=== PATIENT | male | born 1955 | race Two or more races ===

== ENCOUNTER 2020-10-20 12:41 | Inpatient (IN) | payer OTHER ==
[~2020-10-20] VITALS: Ht 177.8 cm; Wt 90.7 kg
[2020-10-20] MEDS ORDERED: COZAAR25 MG (12:56)
[2020-10-20] MEDS ORDERED: METFORMIN HCL500 M3 (12:57)
[2020-10-20] MEDS ORDERED: TIZANIDINE HCL4 M1 (13:02)
[2020-10-20] MEDS ORDERED: ATORVASTATIN CA10 MG (13:02)
[2020-10-21] MEDS ORDERED: CIPROFLOXACIN500 MG (11:06)
[2020-10-21] MEDS ORDERED: FAMOTIDINE20 MG (11:06)
[2020-10-21] MEDS ORDERED: METRONIDAZOLE500 MG (11:07)
[2020-10-26] MEDS ORDERED: PROTONIX40 MG PO (14:16)
[2020-10-26] MEDS ORDERED: INTESTINEX680 M1 PO (14:16)
== END 2020-10-26 18:20 | disposition home or self-care (01) | DRG 440 ==
LOC: ER 12:41 → ICU-2 22:58 → SEC-K 10-24 10:16 → MEDI 10-24 11:15
PROVIDERS: ADMIT Internal Medicine; ATTEND Internal Medicine
PROC: 4A033R1 Measurement of Arterial Saturation, Peripheral, Percutaneous Approach (ICD-10-PCS; principal; 2020-10-20)
PROC: BW40ZZZ Ultrasonography of Abdomen (ICD-10-PCS; 2020-10-21)
PROC: BF37ZZZ Magnetic Resonance Imaging (MRI) of Pancreas (ICD-10-PCS; 2020-10-22)
DX: K85.80 Other acute pancreatitis without necrosis or infection (principal); E11.9 Type 2 diabetes mellitus without complications; I10 Essential (primary) hypertension; E11.65 Type 2 diabetes mellitus with hyperglycemia; Z79.4 Long term (current) use of insulin; E86.0 Dehydration; Z20.822 Contact with and (suspected) exposure to COVID-19

== ENCOUNTER 2025-04-18 16:53 | Emergency (ER) | payer OTHER ==
[~2025-04-18] VITALS: Ht 165.1 cm; Wt 72.6 kg
[~2025-04-18 16:53] MED LIST: ATORVASTATIN CA10 MG; CIPROFLOXACIN500 MG; COZAAR25 MG; FAMOTIDINE20 MG; INTESTINEX680 M1 PO; METFORMIN HCL500 M3; METRONIDAZOLE500 MG; PROTONIX40 MG PO; TIZANIDINE HCL4 M1
[2025-04-18] MEDS ORDERED: FAMOTIDINE/PF 20 MG in 0.9 % SODIUM CHLORIDE 8 ML IV PUSH STA (17:31)
[2025-04-18] MEDS ORDERED: 0.9 % SODIUM CHLORIDE 1,000 ML IV SCH (17:45)
[2025-04-18] MEDS ORDERED: ONDANSETRON HCL 2 MG/ML VIAL IV ONE (17:45)
[2025-04-18 18:01] LABS: BASO % 0.5 % (0.1-1.2); EOS # 0.11 (0.04-0.54); EOS % 1.2 % (0.7-7.0); LYMPH # 1.20 (1.18-3.74); LYMPH % 12.6 % (19.3-53.1); MEAN PLATELET VOLUME 10.60 fl (9.4-12.4); MONO # 0.69 (0.24-0.82); MONO % 7.2 % (4.7-12.5); NEUT # 7.44 (1.56-6.13); NEUT % 78.1 % (34.0-71.1); RED CELL DISTRIBUTION WIDTH 13.8 % (11.6-14.4)
[2025-04-18 18:29] LABS: ALT/SGPT 35 U/L (12-78); AST/SGOT 29 U/L (15-37); BILIRUBIN TOTAL 0.33 mg/dL (0.3-1.2); BILIRUBIN,CONJUGATED < 0.10 mg/dL (0.0-0.2); BUN CREA RATIO 16 (7.0-25.0); CREATININE SERUM 1.22 mg/dL (0.70-1.30); GFR 58.72; GLOBULINA 3.4 G/DL (2.4-3.5); GLUCOSE FASTING 111 mg/dL (65-100); OSMOLALITY SERUM 286 MOSM/KG (275-295)
[2025-04-18 18:32] LABS: ALT/SGPT 42 U/L (12-78); AST/SGOT 30 U/L (15-37); LDH 169 U/L (87-241); PHOSPHOKINASE CREATININE 388 U/L (39-308)
== END 2025-04-18 19:09 | disposition home or self-care (01) ==
LOC: ER 16:53
PROVIDERS: General Practice
DX: R10.9 Unspecified abdominal pain (principal); I10 Essential (primary) hypertension; E11.9 Type 2 diabetes mellitus without complications; Z79.84 Long term (current) use of oral hypoglycemic drugs; Z88.6 Allergy status to analgesic agent
CPT/HCPCS: 36415; 93005; 96365; 96366; 99282; J2405; J3490; J7030

== ENCOUNTER 2025-05-27 17:48 | Inpatient (IN) | payer OTHER ==
[~2025-05-27] VITALS: Ht 177.8 cm; Wt 88.5 kg
--- NOTE | 2025-05-27 18:16 | NUR ---
PACIENTE ALERTA Y ORIENTADO X 3. REFIERE DESDE EL MEDIO MESFIN DOLOR DE PECHO, ABDOMINAL, ESPALDA BAJA Y COSTADOS. REFIERE VOMITOS X 3.
[2025-05-27] MEDS ORDERED: ROSUVASTATIN CA20 MG PO (18:28)
[2025-05-27] MEDS ORDERED: XIGDUO XR 10 M1 EAC1 PO (18:29)
--- NOTE | 2025-05-27 18:35 | NUR ---
SE PRESENTA PACIENTE A DR PABLO Y SE COLOCA EN RODRIGO EN ESPERA A EVALUACION MEDICA.
[2025-05-27] MEDS ORDERED: 0.9 % SODIUM CHLORIDE 1,000 ML IV STA (23:38)
[2025-05-27] MEDS ORDERED: ONDANSETRON HCL 2 MG/ML VIAL IV STA (23:40)
[2025-05-27] MEDS ORDERED: FAMOtidine 10 MG/ML (4ML VIAL) IV PUSH STA (23:40)
[2025-05-27] MEDS ORDERED: MORPHINE SULFATE 4 MG/ML CARTRIDGE IV STA (23:41)
[2025-05-28] MEDS ORDERED: FAMOTIDINE/PF 20 MG/2 ML VIAL ONE ×2 (00:09→08:34)
[2025-05-28] MEDS ORDERED: ONDANSETRON HCL 2 MG/ML VIAL ONE ×2 (00:09→12:36)
--- NOTE | 2025-05-28 00:17 | NUR ---
RN DAO EDUCA A PACIENTE SOBRE [place] MEDICO, KENTRELL REFIERE ENTENDER. SE EXTRAEN MUESTRAS DE LABORATORIO Y SE ADMINISTRAN MEDICAMENTOS GRABIEL ORDEN MEDICA.
[2025-05-28 00:33] LABS: BASO % 0.1 % (0.1-1.2); EOS # 0.00 (0.04-0.54); EOS % 0.0 % (0.7-7.0); LYMPH # 0.32 (1.18-3.74); LYMPH % 2.0 % (19.3-53.1); MEAN PLATELET VOLUME 10.20 fl (9.4-12.4); MONO # 0.96 (0.24-0.82); MONO % 6.0 % (4.7-12.5); NEUT # 14.52 (1.56-6.13); NEUT % 91.5 % (34.0-71.1); RED CELL DISTRIBUTION WIDTH 13.2 % (11.6-14.4)
[2025-05-28] MEDS ORDERED: PROMETHAZINE HCL 25 MG/ML AMPUL ONE (01:00)
[2025-05-28] MEDS ORDERED: PROMETHAZINE HCL 25 MG/ML AMPUL IM ONE (01:00)
[2025-05-28 01:06] LABS: INR 1.03
[2025-05-28 01:53] LABS: ALT/SGPT 356.0 U/L (12-78); AST/SGOT 383.0 U/L (15-37); BILIRUBIN TOTAL 4.61 mg/dL (0.3-1.2); BUN CREA RATIO 14.0 (7.0-25.0); CREATININE SERUM 1.74 mg/dL (0.70-1.30); GFR 38.98; GLOBULINA 4.3 G/DL (2.4-3.5); GLUCOSE FASTING 167.0 mg/dL (65-100); OSMOLALITY SERUM 291.0 MOSM/KG (275-295)
[2025-05-28] MEDS ORDERED: ONDANSETRON HCL 4 MG in 0.9 % SODIUM CHLORIDE 50 ML IV PRN (02:45)
[2025-05-28] MEDS ORDERED: RINGERS SOLUTION,LACTATED 1,000 ML IV SCH (02:45)
[2025-05-28] MEDS ORDERED: DEXTROSE 50 % IN WATER 0.5 G/ML DISP.SYRIN IV PRN (02:45)
[2025-05-28] MEDS ORDERED: INSULIN LISPRO 1,000 UNIT/10 ML UNITS SUBCUTANEO PRN (02:45)
[2025-05-28] MEDS ORDERED: PIPERACILLIN/TAZOBACTAM SODIUM 3.375 GM in DEXTROSE 5 % IN WATER 100 ML IV ONE (02:45)
[2025-05-28] MEDS ORDERED: PIPERACILLIN/TAZOBACTAM SODIUM 3.375 GM VIAL IV ONE ×3 (02:48→17:17)
--- NOTE | 2025-05-28 07:43 | NUR ---
SE NOTIFICAN S/V A MD AMANDA
--- NOTE | 2025-05-28 08:44 | NUR ---
SE ORIENTA A PACIENTE SOBRE TX MEDICO Y KENTRELL REFIERE ENTENDER Y ACEPTAR EL MISMO. SE PROCEDE A ADMINISTRAR MEDICAMENTO GRABIEL ORDEN MEDICA BAJO MEDIDAS ASEPTICAS.
[2025-05-28] MEDS ORDERED: FAMOTIDINE/PF 20 MG in 0.9 % SODIUM CHLORIDE 8 ML IV PUSH SCH (09:00)
[2025-05-28] MEDS ORDERED: PIPERACILLIN/TAZOBACTAM SODIUM 3.375 GM in DEXTROSE 5 % IN WATER 100 ML IV SCH (09:03)
[2025-05-28] MEDS ORDERED: MORPHINE SULFATE 4 MG/ML CARTRIDGE IV PRN (09:15)
[2025-05-28] MEDS ORDERED: ENALAPRILAT DIHYDRATE 1.25 MG/ML VIAL IV PRN (09:15)
[2025-05-28] MEDS ORDERED: ACETAMINOPHEN 500 MG GEL..CAP PO ONE (09:56)
[2025-05-28 10:14] VITALS: BP 143/92; O2SAT 100
[2025-05-28 12:18] LABS: URINE APPEARANCE Cloudy; URINE BILIRRUBIN Moderate (NEGATIVE); URINE BLOOD Moderate; URINE COLOR Dark Yellow; URINE KETONE Trace (NEGATIVE); URINE LEUKOCYTE Trace; URINE NITRATE Negative; URINE UROBILINOGEN 1.0 E.U./dl
[2025-05-28 12:28] LABS: URINE BACTERIA 19.1 uL (0.0-1933); URINE CAST 2.05 uL (0.0-1.40); URINE EPITHELIAL CELLS 36.7 uL (0.0-38.8); URINE RBC 5.4 uL (0.0-20.8); URINE WBC 5.0 uL (0.0-23.2)
[2025-05-28 12:30] VITALS: BP 123/65; O2SAT 99
[2025-05-28] MEDS ORDERED: 0.9 % SODIUM CHLORIDE 1,000 ML IV ONE (12:30)
[2025-05-28 13:03] LABS: ABG PH 7.353 (7.35-7.45); ABG PO2 79.3 mmHg (80-100); BICARBONATE 17.4 mmol/l (23-25)
[2025-05-28 13:04] LABS: o2 21 %
[2025-05-28 13:08] LABS: URINE GLUCOSE >=1000 MG/DL (NEGATIVE); URINE PROTEIN 100 (NEGATIVE)
[2025-05-28] MEDS ORDERED: TRAMADOL HCL 50 MG TABLET PO ONE (13:15)
[2025-05-28 17:06] VITALS: BP 105/67; O2SAT 100
[2025-05-29 03:12] VITALS: BP 98/65; O2SAT 94
[2025-05-29 07:02] LABS: ALT/SGPT 243.0 U/L (12-78); AST/SGOT 158.0 U/L (15-37); BILIRUBIN TOTAL 8.96 mg/dL (0.3-1.2); BILIRUBIN,CONJUGATED 7.52 mg/dL (0.0-0.2)
[2025-05-29 09:13] VITALS: BP 130/84; O2SAT 94
[2025-05-29 11:57] VITALS: O2SAT 92
[2025-05-29] MEDS ORDERED: MEROPENEM 500 MG/VIAL VIAL IV SCH ×2 (13:00→17:00)
[2025-05-29 13:36] LABS: URINE APPEARANCE Cloudy; URINE BILIRRUBIN Moderate (NEGATIVE); URINE BLOOD Moderate; URINE COLOR Dark Yellow; URINE KETONE Trace (NEGATIVE); URINE LEUKOCYTE Trace; URINE NITRATE Negative; URINE UROBILINOGEN 1.0 E.U./dl
[2025-05-29 13:39] LABS: URINE BACTERIA 11.9 uL (0.0-1933); URINE EPITHELIAL CELLS 37.3 uL (0.0-38.8); URINE RBC 2.7 uL (0.0-20.8); URINE WBC 7.0 uL (0.0-23.2)
[2025-05-29 13:45] LABS: URINE CAST 0.29 uL (0.0-1.40); URINE GLUCOSE 250 MG/DL (NEGATIVE); URINE PROTEIN 100 (NEGATIVE)
[2025-05-29 13:56] LABS: URINE CRYSTALS FEW /HPF
[2025-05-29 18:08] VITALS: BP 130/83; O2SAT 97
[2025-05-29 18:23] VITALS: O2SAT 93
[2025-05-29 22:11] VITALS: O2SAT 93
[2025-05-30] VITALS (9 sets, daily range): BP systolic 129–154; BP diastolic 77–85; O2SAT 90–97
[2025-05-30 06:07] LABS: BASO % 0.4 % (0.1-1.2); EOS # 0.01 (0.04-0.54); EOS % 0.1 % (0.7-7.0); LYMPH # 0.41 (1.18-3.74); LYMPH % 3.1 % (19.3-53.1); MEAN PLATELET VOLUME 11.20 fl (9.4-12.4); MONO # 0.80 (0.24-0.82); MONO % 6.1 % (4.7-12.5); NEUT # 11.71 (1.56-6.13); NEUT % 89.8 % (34.0-71.1); RED CELL DISTRIBUTION WIDTH 13.5 % (11.6-14.4)
[2025-05-30 06:37] LABS: ABG PH 7.393 (7.35-7.45); ABG PO2 85.6 mmHg (80-100); BICARBONATE 18.5 mmol/l (23-25)
[2025-05-30 06:38] LABS: o2 21 %
[2025-05-30 07:42] LABS: ALT/SGPT 137.0 U/L (12-78); AST/SGOT 73.0 U/L (15-37); BILIRUBIN TOTAL 3.49 mg/dL (0.3-1.2); BILIRUBIN,CONJUGATED 2.61 mg/dL (0.0-0.2); BUN CREA RATIO 20.0 (7.0-25.0); CREATININE SERUM 1.64 mg/dL (0.70-1.30); GFR 41.74; GLOBULINA 3.1 G/DL (2.4-3.5); GLUCOSE FASTING 96.0 mg/dL (65-100); OSMOLALITY SERUM 298.0 MOSM/KG (275-295)
[2025-05-31] VITALS (8 sets, daily range): BP systolic 155–160; BP diastolic 83–87; O2SAT 88–97
[2025-06-01] VITALS (11 sets, daily range): BP systolic 136–148; BP diastolic 77–84; O2SAT 0–98
[2025-06-01 08:19] LABS: RED CELL DISTRIBUTION WIDTH 13.2 % (11.6-14.4)
[2025-06-01 08:30] LABS: BASO % 0.5 % (0.1-1.2); EOS # 0.07 (0.04-0.54); EOS % 0.5 % (0.7-7.0); LYMPH # 0.77 (1.18-3.74); LYMPH % 5.1 % (19.3-53.1); MEAN PLATELET VOLUME 11.80 fl (9.4-12.4); MONO # 1.33 (0.24-0.82); MONO % 8.8 % (4.7-12.5); NEUT # 12.66 (1.56-6.13); NEUT % 83.8 % (34.0-71.1)
[2025-06-01 08:41] LABS: ALT/SGPT 76.0 U/L (12-78); AST/SGOT 46.0 U/L (15-37); BILIRUBIN TOTAL 1.84 mg/dL (0.3-1.2); BUN CREA RATIO 22.0 (7.0-25.0); CREATININE SERUM 1.0 mg/dL (0.70-1.30); GFR 73.87; GLOBULINA 3.4 G/DL (2.4-3.5); GLUCOSE FASTING 105.0 mg/dL (65-100); OSMOLALITY SERUM 289.0 MOSM/KG (275-295)
[2025-06-01] MEDS ORDERED: POTASSIUM PHOS,M-BASIC-D-BASIC 9 MM in 0.9 % SODIUM CHLORIDE 250 ML IV ONE (14:00)
[2025-06-02 01:09] VITALS: BP 153/80; O2SAT 95
[2025-06-02 05:27] VITALS: O2SAT 97
[2025-06-02 08:00] VITALS: BP 115/72; O2SAT 99
[2025-06-02] MEDS ORDERED: MEROPENEM 500 MG/VIAL VIAL IV SCH (20:00)
[2025-06-02 21:41] VITALS: BP 158/92
[2025-06-03 02:02] VITALS: BP 154/79; O2SAT 95
[2025-06-03 06:21] LABS: BASO % 0.4 % (0.1-1.2); EOS # 0.16 (0.04-0.54); EOS % 1.2 % (0.7-7.0); LYMPH # 1.36 (1.18-3.74); LYMPH % 9.9 % (19.3-53.1); MEAN PLATELET VOLUME 11.90 fl (9.4-12.4); MONO # 1.38 (0.24-0.82); MONO % 10.1 % (4.7-12.5); NEUT # 10.39 (1.56-6.13); NEUT % 75.9 % (34.0-71.1); RED CELL DISTRIBUTION WIDTH 13.3 % (11.6-14.4)
[2025-06-03 06:42] LABS: ALT/SGPT 51.0 U/L (12-78); AST/SGOT 41.0 U/L (15-37); BILIRUBIN TOTAL 1.45 mg/dL (0.3-1.2); BUN CREA RATIO 17.0 (7.0-25.0); CREATININE SERUM 0.9 mg/dL (0.70-1.30); GFR 83.42; GLOBULINA 3.3 G/DL (2.4-3.5); GLUCOSE FASTING 94.0 mg/dL (65-100); OSMOLALITY SERUM 284.0 MOSM/KG (275-295)
[2025-06-03 09:21] VITALS: BP 148/81; O2SAT 96
[2025-06-03] MEDS ORDERED: MORPHINE SULFATE 2 MG/ML CARTRIDGE IV PRN (18:15)
[2025-06-03 20:05] LABS: BASO % 0.3 % (0.1-1.2); EOS # 0.12 (0.04-0.54); EOS % 0.7 % (0.7-7.0); LYMPH # 1.24 (1.18-3.74); LYMPH % 7.0 % (19.3-53.1); MEAN PLATELET VOLUME 11.40 fl (9.4-12.4); MONO # 1.40 (0.24-0.82); MONO % 7.9 % (4.7-12.5); NEUT # 14.36 (1.56-6.13); NEUT % 80.6 % (34.0-71.1); RED CELL DISTRIBUTION WIDTH 13.3 % (11.6-14.4)
[2025-06-03 21:16] LABS: BAND MAN 2.0 %; LYMPHOCYTE MAN 4.0 %; MONOCYTE MAN 10.0 %; NEUTROPHILS MAN 79.0 %
[2025-06-04 03:09] VITALS: BP 161/71; O2SAT 98
[2025-06-04 10:12] VITALS: BP 124/74; O2SAT 96
[2025-06-04 16:57] VITALS: BP 134/77
[2025-06-05 02:39] VITALS: BP 159/82; O2SAT 95
[2025-06-05 05:18] LABS: BASO % 0.3 % (0.1-1.2); EOS # 0.23 (0.04-0.54); EOS % 1.5 % (0.7-7.0); LYMPH # 1.22 (1.18-3.74); LYMPH % 8.0 % (19.3-53.1); MEAN PLATELET VOLUME 11.80 fl (9.4-12.4); MONO # 1.08 (0.24-0.82); MONO % 7.0 % (4.7-12.5); NEUT # 12.51 (1.56-6.13); NEUT % 81.6 % (34.0-71.1); RED CELL DISTRIBUTION WIDTH 13.2 % (11.6-14.4)
[2025-06-05 05:52] LABS: ALT/SGPT 54.0 U/L (12-78); AST/SGOT 56.0 U/L (15-37); BILIRUBIN TOTAL 1.44 mg/dL (0.3-1.2); BUN CREA RATIO 19.0 (7.0-25.0); CREATININE SERUM 0.7 mg/dL (0.70-1.30); GFR 111.49; GLOBULINA 3.2 G/DL (2.4-3.5); GLUCOSE FASTING 106.0 mg/dL (65-100); OSMOLALITY SERUM 282.0 MOSM/KG (275-295)
[2025-06-05 09:33] VITALS: BP 127/89; O2SAT 99
[2025-06-05] MEDS ORDERED: MAGNESIUM SULFATE/D5W 1GM/100ML PIGGYBAG IV NR (11:00)
[2025-06-05] MEDS ORDERED: AMOX1TAB5 PO (11:45)
[2025-06-05] MEDS ORDERED: PROTONIX40 MG PO (11:48)
== END 2025-06-05 13:59 | disposition home or self-care (01) | DRG 418 ==
LOC: ER 17:48 → MEDI 05-28 09:05 → SEC-K 05-28 09:05 → MEDI 05-28 13:13 → ICU-2 05-28 13:59 → MEDI 05-28 19:03
PROVIDERS: General Practice; Internal Medicine; Internal Medicine Infectious Disease; Surgery; ADMIT Internal Medicine; ATTEND Internal Medicine
PROC: BW21ZZZ Computerized Tomography (CT Scan) of Abdomen and Pelvis (ICD-10-PCS; 2025-05-27)
PROC: BF37ZZZ Magnetic Resonance Imaging (MRI) of Pancreas (ICD-10-PCS; 2025-05-28)
PROC: 4A12X4Z Monitoring of Cardiac Electrical Activity, External Approach (ICD-10-PCS; 2025-05-29)
PROC: 0FT44ZZ Resection of Gallbladder, Percutaneous Endoscopic Approach (ICD-10-PCS; principal; 2025-06-03 17:00)
DX: K85.10 Biliary acute pancreatitis without necrosis or infection (principal); N17.8 Other acute kidney failure; R65.10 Systemic inflammatory response syndrome (SIRS) of non-infectious origin without acute organ dysfunction; K85.90 Acute pancreatitis without necrosis or infection, unspecified; E11.9 Type 2 diabetes mellitus without complications; I10 Essential (primary) hypertension; N20.0 Calculus of kidney; R00.0 Tachycardia, unspecified; K80.20 Calculus of gallbladder without cholecystitis without obstruction; Z79.4 Long term (current) use of insulin